=== PATIENT | male | born 1950 | race Caucasian/White ===

== ENCOUNTER → 2017-03-29 | Outpatient (CLI) | payer BC ==
[2017-03-29 08:36] LABS: BLOOD GAS BASE EXCESS 0.9 mmol/L (-2-2); BLOOD GAS CARBOXYHEMOGLOBIN 1.4 % (0-4); BLOOD GAS HCO3 25 mmol/L (22-26); BLOOD GAS METHEMOGLOBIN 1.2 % (0-2); BLOOD GAS O2 HGB SATURATION 92 % (90-100); BLOOD GAS OXYGEN CONTENT 19.3 Vol % (12.0-20.0); BLOOD GAS PCO2 41 mmHg (38-42); BLOOD GAS PO2 72 mmHg (61-120); BLOOD GAS TOTAL HGB 14.9 G/DL (12.0-16.0); CRITICAL VALUE NO; FIO2 21 %; TEMP CORR TO 98.6
[2017-03-29 08:37] LABS: DRAW SITE RT RADIAL; NUMBER OF ARTERIAL PUNCTURES 1; STAT NO; ULNAR PULSE PRESENT
--- NOTE | 2017-04-03 08:09 | RSPPFT ---
DATE OF PROCEDURE: 03/29/17 COMMENTS: Spirometry with FVC of 4.5 predicted 4.9, FEV1 of 3.0 predicted 3.4, FEV1/FVC ratio 67% predicted 69%. Air trapping is present with RV at 3.4 predicted 2.6. DLCO is within the predicted range. IMPRESSION: On the basis of the above, patient has a mild obstructive lung defect with air trapping. There is no response to acutely inhaled bronchodilator.
--- NOTE | 2017-04-16 10:55 | RSPPFT ---
DATE OF PROCEDURE: 03/29/17 COMMENTS: Spirometry with FVC of 4.5 predicted 4.9, FEV1 of 3.0 predicted 3.4, IMPRESSION:
== END ==
LOC: HRSP 07:24
PROVIDERS: ATTEND Internal Medicine Cardiovascular Disease
DX: R06.02 Shortness of breath (principal)
CPT/HCPCS: 36600; 82805; 94060; 94620; 94726; 94729